=== PATIENT | female | born 1950 | race Caucasian/White ===

== ENCOUNTER 2020-09-11 08:07 | Outpatient (REF) | payer MEDICARE, MEDICAID, SELFPAY ==
--- NOTE | 2020-09-11 08:32 | ECG_ITS ---
Test Reason : ENCOUNTER FOR SCREEN Blood Pressure : / mmHG Vent. Rate : 058 BPM Atrial Rate : 058 BPM P-R Int : 172 ms QRS Dur : 116 ms QT Int : 402 ms P-R-T Axes : 066 -10 012 degrees QTc Int : 394 ms Sinus bradycardia Low voltage QRS Right bundle branch block Abnormal ECG No previous ECGs available Referred By: Fransico Verma Electronically Signed By:KATTY NORIEGA
[2020-09-11 09:34] LABS: MANUAL DIFF FLAG NO
[2020-09-11 09:47] LABS: Basophils Percent Auto 0.6 % (0-2); Eosinophils Absolute Auto 0.2 X10*3/uL (0.0-0.4); Hemoglobin 12.6 g/dl (12.0-16.0); Lymphocytes Absolute Auto 1.4 X10*3/uL (1.2-4.9); Lymphocytes Percent Auto 28.4 % (20-40); Mean Corpuscular HGB Conc 34.1 g/dl (31.0-35.0); Mean Corpuscular Hemoglobin 32.1 pg (27.0-33.0); Mean Corpuscular Volume 94.4 fL (80-98); Mean Platelet Volume 9.4 fL (9.4-12.3); Monocytes Absolute Auto 0.5 X10*3/uL (0.1-1.2); Monocytes Percent Auto 9.3 % (2-11); Neutrophils Percent Auto 58.7 % (45-73); Platelet Count 248 X10*3/uL (160-400); Red Blood Count 3.92 X10*6/uL (4.20-5.50); Red Cell Distribution Width 12.5 % (11.0-16.0)
[2020-09-11 10:03] LABS: Alanine Aminotransferase 20 U/L (0-31); Albumin Level 4.4 g/dL (3.5-5.0); Alkaline Phosphatase 111 U/L (39-117); Anion Gap 13 (12-20); Aspartate Amino Transferase 24 U/L (5-31); Bilirubin Total 0.7 mg/dL (0.0-1.0); Blood Urea Nitrogen 20 mg/dL (9-16); Calcium 9.7 mg/dL (8.4-10.2); Carbon Dioxide 31 mmol/L (22-29); Chloride 102 mmol/L (96-108); Cholesterol 283 mg/dL; Estimated Glomerular Filt Rate > 60; Glucose Fasting 75 mg/dL (60-99); HDL Cholesterol 84 mg/dL; LDL Cholesterol Calculated 188 mg/dl; Potassium 3.8 mmol/L (3.3-5.1); Sodium 142 mmol/L (135-145); Total Protein 6.8 g/dL (6.5-8.0); Triglycerides 59 mg/dL
[2020-09-11 10:22] LABS: Thyroid Stimulating Hormone 0.83 uIU/mL (0.32-4.0)
== END 2020-09-11 08:08 | disposition home or self-care (01) ==
LOC: HO.LAB 08:07
PROVIDERS: PCP Internal Medicine; Visit Provider Internal Medicine
DX: Z00.00 Encounter for general adult medical examination without abnormal findings (principal); Z13.9 Encounter for screening, unspecified; E03.9 Hypothyroidism, unspecified; E11.9 Type 2 diabetes mellitus without complications
CPT/HCPCS: 36415; 80053; 80061; 84443; 85025; 93005

== ENCOUNTER 2022-01-06 08:38 | Outpatient (REF) | payer MEDICARE, MEDICAID, SELFPAY ==
[2022-01-06 09:47] LABS: Hematocrit 35.9 % (37.0-47.0); Hemoglobin 12.5 g/dl (12.0-16.0); Mean Corpuscular HGB Conc 34.8 g/dl (31.0-35.0); Mean Corpuscular Hemoglobin 33.3 pg (27.0-33.0); Mean Corpuscular Volume 95.7 fL (80.0-98.0); Mean Platelet Volume 9.8 fL (9.4-12.3); Platelet Count 260 X10*3/uL (160-400); Red Blood Count 3.75 X10*6/uL (4.20-5.50); Red Cell Distribution Width 13.1 % (11.0-16.0); White Blood Count 5.9 X10*3/uL (4.8-10.8)
[2022-01-06 10:11] LABS: Alanine Aminotransferase 20 U/L (0-31); Albumin Level 4.3 g/dL (3.5-5.0); Alkaline Phosphatase 110 U/L (39-117); Anion Gap 17 (12-20); Aspartate Amino Transferase 25 U/L (5-31); Bilirubin Total 0.6 mg/dL (0.0-1.0); Blood Urea Nitrogen 12 mg/dL (9-16); Calcium 9.5 mg/dL (8.4-10.2); Carbon Dioxide 28 mmol/L (22-29); Chloride 101 mmol/L (96-108); Cholesterol 281 mg/dL; Estimated Glomerular Filt Rate > 60; Glucose Fasting 81 mg/dL (60-99); HDL Cholesterol 86 mg/dL; LDL Cholesterol Calculated 183 mg/dl; Potassium 3.8 mmol/L (3.3-5.1); Sodium 142 mmol/L (135-145); Total Protein 6.9 g/dL (6.5-8.0); Triglycerides 63 mg/dL
[2022-01-06 10:28] LABS: TSH reflex Free T4 1.32 uIU/mL (0.32-4.0); Vitamin D 25-OH Total 67.1 ng/mL (>30)
[2022-01-06 10:39] LABS: Folate > 20.0 ng/mL (> or = 4.0); Vitamin B12 496 pg/mL (200-900)
== END 2022-01-06 08:39 | disposition home or self-care (01) ==
LOC: HO.LAB 08:38
PROVIDERS: PCP Internal Medicine; Visit Provider Nurse Practitioner Family
DX: Z00.00 Encounter for general adult medical examination without abnormal findings (principal); Z13.29 Encounter for screening for other suspected endocrine disorder; E78.5 Hyperlipidemia, unspecified
CPT/HCPCS: 36415; 80053; 80061; 82306; 82607; 82746; 84443; 85027

== ENCOUNTER 2022-05-04 07:31 | Outpatient (REF) | payer MEDICARE, MEDICAID, SELFPAY ==
[2022-05-04 11:18] LABS: Cholesterol 194 mg/dL; HDL Cholesterol 78 mg/dL; LDL Cholesterol Calculated 103 mg/dl; Triglycerides 65 mg/dL
== END 2022-05-04 07:32 | disposition home or self-care (01) ==
LOC: HO.10HDL 07:31
PROVIDERS: Visit Provider Nurse Practitioner Family
DX: E78.5 Hyperlipidemia, unspecified (principal)
CPT/HCPCS: 36415; 80061

== ENCOUNTER 2022-11-07 13:31 | Outpatient (AMB) | payer MEDICARE, MEDICAID, SELFPAY ==
--- NOTE | 2022-11-07 13:39 | A.OFFPC_ITS ---
Vital Signs 11/07/22 13:42 Height 5 ft 2 in Weight 134 lb BMI 24.5 BP 110/60 Blood Pressure Location Lt brachial Position Sitting Pulse 81 Pulse Source Pulse Oximeter Pulse Oximetry (%) 96 Oxygen Delivery Method Room Air Intake Visit Reasons: Annual Exam Intake Note: Patient is here today for a physical. 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 per policy Accompanied by: Self / Same As Patient Allergies dog dander [DOGS] Allergy (Intermediate, Verified 11/07/22 13:44) ITCHING DUST Allergy (Intermediate, Uncoded 11/07/22 13:44) ITCHING SEASONAL ALLERGIES Allergy (Intermediate, Uncoded 11/07/22 13:44) ITCHING zylocaine Allergy (Intermediate, Uncoded 11/07/22 13:44) Seizure Medication List - Last Reconciled 11/07/22 by Fransico Verma MD atorvastatin 40 mg PO DAILY blood pressure monitor As directed epinephrine IM DIRECTED hydrochlorothiazide 50 mg PO QAM nystatin 1,000,000 units PO BID tretinoin 0.025% topical BEDTIME Tobacco use date assessed: 11/07/22 Fall risk assessment: No Falls in past year Last assessed Fall Risk: 11/07/22 Dental Screening Dental Screen Date: 11/07/22 Did you have a dental visit in the last 12 months?: Yes Did you have a dental problem in the last 6 months where you did not have access to dental care?: No Was dental information given to patient?: Patient has dentist HPI Annual Exam HPI Details HTN on Rx; doing well PFSH Medical History (Updated 11/07/22 @ 14:01 by Fransico Verma MD) Hyperlipidemia Hypertension Right bundle branch block Surgical History History of colonoscopy Hx of appendectomy Hx of tooth extraction Family History (Updated 11/07/22 @ 13:40 by CAIT Gamino) Father No problems noted. Mother No problems noted. Social History Housing: Assisted Living Facility Alcohol intake: never Patient Tobacco Use Status: Former Tobacco user Tobacco use type: Cigarette e-Cigarette/Vaping Use: Never Used Second Hand Smoke Exposure: No service: No Current occupational status: retired Cognitive needs: No Hearing needs: No Vision needs: Yes (glasses) Questionnaire Thrive Questionnaire Date Thrive assessed: 05/09/22 ALY-7 AMB Questionnaire ALY-7 Date ALY - 7 assessed: 05/09/22 Source: Developed by Drs. Mendel Elam, Coral Joseph, Connor Bryan and colleagues, with an educational addison from [employer]. Review of Systems Const Denies chills, Denies fatigue, Denies headache(s) and Denies weight loss Eyes Denies change in vision, Denies diplopia and Denies eye pain ENT Denies vertigo, Denies dizziness, Denies headache(s) and Denies nasal discharge Card Denies chest pain, Denies rapid heart rate and Denies dyspnea on exertion Resp Denies chest congestion, Denies cough, Denies pain with cough and Denies dyspnea on exertion GI Denies abdominal pain, Denies hematochezia and Denies change in bowel habits Musc Denies myalgias, Denies arthralgias and Denies joint swelling Skin/Breast Denies lesions and Denies unusual bruising Neuro Denies vertigo, Denies dizziness, Denies headache(s) and Denies focal weakness Endo Denies fatigue Physical exam (Primary Care) Vital Signs: Last Vital Signs Pulse 81 11/07/22 13:42 BP 110/60 11/07/22 13:42 Pulse Ox 96 11/07/22 13:42 Oxygen Delivery Method Room Air 11/07/22 13:42 BMI result Body Mass Index 24.5 Tobacco/Smoking Status: Tobacco use Status Tobacco use date assessed 11/07/22 11/07/22 13:47 Patient Tobacco Use Status Former Tobacco user 11/07/22 13:47 Tobacco use type Cigarette 11/07/22 13:47 e-Cigarette/Vaping Use Never Used 11/07/22 13:47 Thrive Assessment: Date of Thrive Assessment Date Thrive assessed 05/09/22 11/07/22 13:47 Advance Care Planning discussion: On file, no changes Forms completed: Health Care Proxy Const General: cooperative, healthy appearing and no acute distress Orientation/consciousness: oriented to person, oriented to place and oriented to time HENMT Head: Yes normal to inspection, Yes normocephalic and Yes atraumatic Mouth: Normal oral and palatal mucosa present and tongue normal Throat: Yes posterior oropharynx normal and Yes uvula midline Eyes General: appearance normal, both eyes and all related structures Neck Neck: Yes normal visual inspection, Yes full ROM and Yes no lymphadenopathy Thyroid: Thyroid normal Carotids: normal carotid upstroke Chest Chest palpation & inspection: normal inspection of the chest Resp Effort & Inspection: normal respiratory effort and able to speak in complete sentences Auscultation: clear to auscultation bilaterally Cardio Jugular venous distension: no JVD Palpation: normal PMI Rate: regular rate Rhythm: regular rhythm Heart sounds: S1 normal heart sound present and S2 normal heart sound present GI Inspection: Yes normal to inspection Palpation (GI): Soft to palpation and No hepatosplenomegaly present Auscultation: normal bowel sounds General: Yes no CVA tenderness Back/Spine/Pelvis Back: no CVA tenderness Skin General skin exam: no rashes or lesions noted Neuro General: oriented to person, oriented to place and oriented to time Extrem General: Yes normal to inspection and Yes full ROM Assessment and Plan Assessment & Plan (1) Hypertension: Code(s): I10 - Essential (primary) hypertension Plan: decrease HCTZ to 25mg qd (2) Hyperlipidemia: Code(s): E78.5 - Hyperlipidemia, unspecified Plan: stable; do labs (3) Physical exam: Code(s): Z00.00 - Encounter for general adult medical examination without abnormal findings Plan: stable; do lasb Coding Level of Care Code Est Pt Prev Care >65y(16004) Diagnoses Hypertension I10 Hyperlipidemia E78.5 Physical exam Z00.00 Additional Codes Vital Signs *Quality* - Advance Care Planning discussion: On file, no changes ([id number])
[2022-11-07 13:42] VITALS: BP 110/60; PULSE 81; O2SAT 96; BMI 24.5
== END 2022-11-07 13:59 | disposition home or self-care (01) ==
PROVIDERS: Visit Provider Internal Medicine
DX: Z00.00 Encounter for general adult medical examination without abnormal findings (principal); I10 Essential (primary) hypertension; E78.5 Hyperlipidemia, unspecified
CPT/HCPCS: 1123F; 99397

== ENCOUNTER 2023-11-03 12:32 | Outpatient (REF) | payer MEDICARE, MEDICAID, SELFPAY ==
[2023-11-03 12:45] LABS: MANUAL DIFF FLAG NO
[2023-11-03 13:20] LABS: Basophils Percent Auto 0.7 % (0-2); Eosinophils Absolute Auto 0.1 X10*3/uL (0.0-0.4); Eosinophils Percent Auto 1.7 % (0-4); Hematocrit 35.9 % (37.0-47.0); Hemoglobin 12.7 g/dl (12.0-16.0); Imm Gran Abs Auto 0.02 X10*3/uL (0.00-0.03); Imm Gran Pct Auto 0.3 % (0.0-0.4); Lymphocytes Absolute Auto 2.1 X10*3/uL (1.2-4.9); Lymphocytes Percent Auto 35.2 % (20-40); Mean Corpuscular HGB Conc 35.4 g/dl (31.0-35.0); Mean Corpuscular Hemoglobin 33.2 pg (27.0-33.0); Mean Platelet Volume 9.7 fL (9.4-12.3); Monocytes Absolute Auto 0.5 X10*3/uL (0.1-1.2); Monocytes Percent Auto 8.5 % (2-11); Neutrophils Absolute Auto 3.2 x10*3/uL (2.0-8.3); Neutrophils Percent Auto 53.6 % (45-73); Platelet Count 246 X10*3/uL (160-400); Red Blood Count 3.82 X10*6/uL (4.20-5.50); Red Cell Distribution Width 12.4 % (11.0-16.0)
[2023-11-03 20:44] LABS: Alanine Aminotransferase 14 U/L (0-31); Albumin Level 4.3 g/dL (3.5-5.0); Alkaline Phosphatase 85 U/L (39-117); Anion Gap 14 (12-20); Aspartate Amino Transferase 25 U/L (5-31); Bilirubin Total 0.4 mg/dL (0.0-1.0); Blood Urea Nitrogen 5 mg/dL (9-16); Calcium 9.9 mg/dL (8.4-10.2); Carbon Dioxide 27 mmol/L (22-29); Chloride 104 mmol/L (96-108); Cholesterol 241 mg/dL (<200); Estimated Glomerular Filt Rate > 60; Glucose Fasting 80 mg/dL (60-99); HDL Cholesterol 83 mg/dL (>40); LDL Cholesterol Calculated 145 mg/dL (<100); Potassium 3.5 mmol/L (3.3-5.1); Sodium 141 mmol/L (135-145); Thyroid Stimulating Hormone 1.21 uIU/mL (0.32-4.0); Total Protein 6.7 g/dL (6.5-8.0); Triglycerides 68 mg/dL (<150)
== END 2023-11-03 12:33 | disposition home or self-care (01) ==
LOC: HO.LAB 12:32
PROVIDERS: PCP Internal Medicine; Visit Provider Internal Medicine
DX: Z13.220 Encounter for screening for lipoid disorders (principal); Z13.29 Encounter for screening for other suspected endocrine disorder; Z20.2 Contact with and (suspected) exposure to infections with a predominantly sexual mode of transmission
CPT/HCPCS: 36415; 80053; 80061; 84443; 85025

== ENCOUNTER 2023-11-10 09:50 | Outpatient (AMB) | payer MEDICARE, MEDICAID, SELFPAY ==
[2023-11-10 09:54] VITALS: BP 100/60; PULSE 67; O2SAT 96; BMI 24.7
--- NOTE | 2023-11-10 09:54 | MHC.PC.OV ---
Vital Signs 11/10/23 09:54 Height 5 ft 2 in Weight 135 lb BMI 24.7 BP 100/60 Blood Pressure Location Lt brachial Position Sitting Pulse 67 Pulse Source Pulse Oximeter Pulse Oximetry (%) 96 Oxygen Delivery Method Room Air Intake Visit Reasons: Annual Exam Cook Sauce Required: No Accompanied by: Self / Same As Patient Allergies dog dander [DOGS] Allergy (Intermediate, Verified 11/07/22 13:44) ITCHING DUST Allergy (Intermediate, Uncoded 11/07/22 13:44) ITCHING SEASONAL ALLERGIES Allergy (Intermediate, Uncoded 11/07/22 13:44) ITCHING zylocaine Allergy (Intermediate, Uncoded 11/07/22 13:44) Seizure Tobacco use date assessed: 11/07/22 Fall risk assessment: No Falls in past year Last assessed Fall Risk: 11/10/23 Dental Screening Dental Screen Date: 11/10/23 Did you have a dental visit in the last 12 months?: No Did you have a dental problem in the last 6 months where you did not have access to dental care?: No Was dental information given to patient?: Patient has dentist HPI Annual Exam HPI Details hyperlipidemia and hypertension; stable [facility] Medical History (Updated 11/07/22 @ 14:01 by Fransico Verma MD) Right bundle branch block Hypertension Hyperlipidemia Surgical History History of colonoscopy Hx of tooth extraction Hx of appendectomy Family History Father No problems noted. Mother No problems noted. Social History Housing: Assisted Living Facility Alcohol intake: never Patient Tobacco Use Status: Former Tobacco user Tobacco use type: Cigarette e-Cigarette/Vaping Use: Never Used Second Hand Smoke Exposure: No service: No Current occupational status: retired Cognitive needs: No Hearing needs: No Vision needs: Yes (glasses) Questionnaire PHQ-9 Over the last 2 weeks, how often have you been bothered by any of the following problems? 1. Little interest or pleasure in doing things: not at all 2. Feeling down, depressed, or hopeless: not at all 3. Trouble falling or staying asleep, or sleeping too much: not at all 4. Feeling tired or having little energy: not at all 5. Poor appetite or overeating: not at all 6. Feeling bad about yourself - or that you are a failure or have let yourself or your family down: not at all 7. Trouble concentrating on things, such as reading the newspaper or watching television: not at all 8. Moving or speaking so slowly that other people could have noticed. Or the opposite - being so fidgety or restless that you have been moving around a lot more than usual: not at all 9. Thoughts that you would be better off or of hurting yourself in some way: not at all Total score: 0 Depression Screening Interpretation: Negative Depression Screening Done: Yes 09346 - PHQ-9 Billing: Yes Source: Developed by Drs. Mendel Elam, Coral Joseph, Connor Bryan and colleagues, with an educational addison from [employer]. Thrive Questionnaire Date Thrive assessed: 11/10/23 I am a: Patient What is your living situation today?: I have a steady place to live Within the past 12 months, did the food you bought not last and you didn't have the money to get more?: Never true Within the past 12 months, did you worry whether your food would run out before you got money to buy more?: Never true Do you have trouble paying for medicines?: No Do you have trouble getting transportation to medical appointments?: No Do you have trouble paying your heating and electricity bill?: No Do you have trouble taking care of your child, family member or friend?: No Do you have trouble with day-to-day activities such as bathing, preparing meals, shopping, managing finances, etc.?: No Are you currently unemployed and looking for a job?: No Are you interested in more education?: No Please select the resources that you would like help with: None THRIVE Score: 0 ALY-7 AMB Questionnaire ALY-7 Date ALY - 7 assessed: 11/10/23 Feeling nervous, anxious, or on edge: 0 = Not at all Not being able to stop or control worryin = Not at all Worrying too much about different things: 0 = Not at all Trouble relaxin = Not at all Being so restless that it is hard to sit still: 0 = Not at all Becoming easily annoyed or irritable: 0 = Not at all Feeling afraid as if something awful might happen: 0 = Not at all Total ALY-7 score (0-4 normal; 5-9 mild; 10-14 moderate; 15-21 severe): 0 Source: Developed by Drs. Mendel Elam, Coral Joseph, Connor Bryan and colleagues, with an educational addison from [employer]. ALY-7 Assessment Billing ALY-7 Assessment Tool: ALY-7 Assessment 45059 Review of Systems Const Denies chills, Denies fatigue, Denies headache(s) and Denies weight loss Eyes Denies change in vision, Denies diplopia and Denies eye pain ENT Denies vertigo, Denies dizziness, Denies headache(s) and Denies nasal discharge Card Denies chest pain, Denies rapid heart rate and Denies dyspnea on exertion Resp Denies chest congestion, Denies cough, Denies pain with cough and Denies dyspnea on exertion GI Denies abdominal pain, Denies hematochezia and Denies change in bowel habits Musc Denies myalgias, Denies arthralgias and Denies joint swelling Skin/Breast Denies lesions and Denies unusual bruising Neuro Denies vertigo, Denies dizziness, Denies headache(s) and Denies focal weakness Endo Denies fatigue Physical exam (Primary Care) Vital Signs: Last Vital Signs Pulse 67 11/10/23 09:54 BP 100/60 11/10/23 09:54 Pulse Ox 96 11/10/23 09:54 Oxygen Delivery Method Room Air 11/10/23 09:54 BMI result Body Mass Index 24.7 Tobacco/Smoking Status: Tobacco use Status Tobacco use date assessed 11/07/22 11/10/23 09:56 Patient Tobacco Use Status Former Tobacco user 11/10/23 09:56 Tobacco use type Cigarette 11/10/23 09:56 e-Cigarette/Vaping Use Never Used 11/10/23 09:56 PHQ-9: PHQ-9 Score PHQ-9: Total score 0 11/10/23 10:09 Depression Screening Interpretation: Negative Thrive Assessment: Date of Thrive Assessment Date Thrive assessed 11/10/23 11/10/23 09:56 Const General: cooperative, healthy appearing and no acute distress Orientation/consciousness: oriented to person, oriented to place and oriented to time HENMT Head: Yes normal to inspection, Yes normocephalic and Yes atraumatic Mouth: Normal oral and palatal mucosa present and tongue normal Throat: Yes posterior oropharynx normal and Yes uvula midline Eyes General: appearance normal, both eyes and all related structures Neck Neck: Yes normal visual inspection, Yes full ROM and Yes no lymphadenopathy Thyroid: Thyroid normal Carotids: normal carotid upstroke Chest Chest palpation & inspection: normal inspection of the chest Resp Effort & Inspection: normal respiratory effort and able to speak in complete sentences Auscultation: clear to auscultation bilaterally Cardio Jugular venous distension: no JVD Palpation: normal PMI Rate: regular rate Rhythm: regular rhythm Heart sounds: S1 normal heart sound present and S2 normal heart sound present GI Inspection: Yes normal to inspection Palpation (GI): Soft to palpation and No hepatosplenomegaly present Auscultation: normal bowel sounds General: Yes no CVA tenderness Back/Spine/Pelvis Back: no CVA tenderness Skin General skin exam: no rashes or lesions noted Neuro General: oriented to person, oriented to place and oriented to time Extrem General: Yes normal to inspection and Yes full ROM Assessment and Plan Assessment & Plan (1) Physical exam: Code(s): Z00.00 - Encounter for general adult medical examination without abnormal findings Plan: stable; do labs (2) Hypertension: Code(s): I10 - Essential (primary) hypertension Plan: stable; same rx (3) Hyperlipidemia: Code(s): E78.5 - Hyperlipidemia, unspecified Plan: stable; same rx Orders: Orders ECG 12 lead EKG 11/10/23 I10 - Essential (primary) hypertension Lipid Panel 11/10/23 Z13.220 - Encounter for screening for lipoid disorders Coding Level of Care Code Est Pt Prev Care >65y(58666) Diagnoses Physical exam Z00.00 Hypertension I10 Hyperlipidemia E78.5 Additional Codes ALY-7 Assessment Billing - ALY-7 Assessment Tool: ALY-7 Assessment [id number] ([id number])
== END 2023-11-10 10:29 | disposition home or self-care (01) ==
PROVIDERS: PCP Internal Medicine; Visit Provider Internal Medicine
DX: Z00.00 Encounter for general adult medical examination without abnormal findings (principal); I10 Essential (primary) hypertension; E78.5 Hyperlipidemia, unspecified
CPT/HCPCS: 99397

== ENCOUNTER → 2023-11-10 11:20 | Outpatient (REF) | payer MEDICARE, MEDICAID, SELFPAY ==
--- NOTE | 2023-11-10 11:25 | ECG_ITS ---
Test Reason : HTN Blood Pressure : / mmHG Vent. Rate : 068 BPM Atrial Rate : 068 BPM P-R Int : 168 ms QRS Dur : 120 ms QT Int : 396 ms P-R-T Axes : 069 -30 023 degrees QTc Int : 421 ms Normal sinus rhythm Possible Left atrial enlargement Left axis deviation Low voltage QRS Right bundle branch block Abnormal ECG When compared with ECG of 11-SEP-2020 08:36, No significant change was found Referred By: Fransico Verma Electronically Signed By:KATTY NORIEGA
== END ==
LOC: HO.CARD 11:20
PROVIDERS: PCP Internal Medicine; Visit Provider Internal Medicine
DX: I10 Essential (primary) hypertension (principal)
CPT/HCPCS: 93005

== ENCOUNTER → 2023-11-10 11:25 | Outpatient (BNV) | payer MEDICARE, MEDICAID, SELFPAY | PROVIDERS: PCP Internal Medicine; Visit Provider Internal Medicine | DX: R94.31 Abnormal electrocardiogram [ECG] [EKG] (principal) | CPT/HCPCS: 93010 ==

== ENCOUNTER 2024-11-12 10:14 | Outpatient (AMB) | payer MEDICARE, MEDICAID, SELFPAY ==
--- NOTE | 2024-11-12 10:16 | A.OFFPC_ITS ---
Vital Signs 11/12/24 10:17 Height 5 ft 2 in Weight 136 lb BMI 24.9 BP 126/54 L Blood Pressure Location Lt brachial Position Sitting Pulse 70 Pulse Source Pulse Oximeter Temp 98.3 F Temp Source Temporal Artery Scan Pulse Oximetry (%) 97 Oxygen Delivery Method Room Air Intake Visit Reasons: ALESSANDRA DR Verma Security Sergeant Required: No Accompanied by: Self / Same As Patient Allergies dog dander (DOGS) Allergy (Intermediate, Verified 11/12/24 10:26) ITCHING DUST Allergy (Intermediate, Uncoded 11/12/24 10:26) ITCHING SEASONAL ALLERGIES Allergy (Intermediate, Uncoded 11/12/24 10:26) ITCHING zylocaine Allergy (Intermediate, Uncoded 11/12/24 10:26) Seizure Medication List - Last Reconciled 11/12/24 by Miladys Osullivan PA-C atorvastatin 40 mg PO DAILY blood pressure monitor As directed epinephrine IM DIRECTED hydrochlorothiazide 50 mg PO QAM nystatin 1,000,000 units PO BID tretinoin 0.025% topical BEDTIME Tobacco use date assessed: 11/12/24 Fall risk assessment: No Falls in past year Last assessed Fall Risk: 11/12/24 Dental Screening Dental Screen Date: 11/12/24 Did you have a dental visit in the last 12 months?: No Did you have a dental problem in the last 6 months where you did not have access to dental care?: No Was dental information given to patient?: No HPI ALESSANDRA DR Verma HPI Details 74-year-old female with past medical his tory of hyperlipidemia, hypertension last seen 10/2023 coming in for transfer care from Dr. Verma/annual exam. Presenting with hypertension and hyperlipidemia management. The patient has been on hydrochlorothiazide 50 mg daily, which was initiated after an episode of significant swelling and elevated blood pressure. The patient experienced dizziness and hypotension, leading to a reduction in the dose to 25 mg daily. Blood pressure readings have been low, and the current reading is 126/54 mmHg on the 25 mg. The patient is on atorvastatin 40 mg, with previous cholesterol levels noted to be high at 145 mg/dL. The patient reports stomach pain associated with certain foods, alleviated by antacids. Mammogram: Last documented 04/2023 with [facility] D[facility]A: with ROBERT Negron 2023 Colonoscopy: Last done 2021 repeat in 5 years Advanced directives: believes this is completed - advised to bring in the forms [facility] Medical History Right bundle branch block Hypertension Hyperlipidemia Surgical History History of colonoscopy Hx of tooth extraction Hx of appendectomy Family History Father No problems noted. Mother No problems noted. Social History Housing: Assisted Living Facility Alcohol intake: never Patient Tobacco Use Status: Former Tobacco user Tobacco use type: Cigarette e-Cigarette/Vaping Use: Never Used Second Hand Smoke Exposure: No service: No Current occupational status: retired Cognitive needs: No Hearing needs: No Vision needs: Yes (glasses) Questionnaire PHQ-9 Over the last 2 weeks, how often have you been bothered by any of the following problems? 1. Little interest or pleasure in doing things: not at all 2. Feeling down, depressed, or hopeless: not at all 3. Trouble falling or staying asleep, or sleeping too much: not at all 4. Feeling tired or having little energy: not at all 5. Poor appetite or overeating: not at all 6. Feeling bad about yourself - or that you are a failure or have let yourself or your family down: not at all 7. Trouble concentrating on things, such as reading the newspaper or watching television: not at all 8. Moving or speaking so slowly that other people could have noticed. Or the opposite - being so fidgety or restless that you have been moving around a lot more than usual: not at all 9. Thoughts that you would be better off or of hurting yourself in some way: not at all Total score: 0 Depression Screening Interpretation: Negative Depression Screening Done: Yes 04100 - PHQ-9 Billing: Yes Source: Developed by Drs. Mendel Elam, Coral Joseph, Connor Bryan and colleagues, with an educational addison from [employer]. Thrive Questionnaire Date Thrive assessed: 11/12/24 I am a: Patient What is your living situation today?: I have a steady place to live Within the past 12 months, did the food you bought not last and you didn't have the money to get more?: Never true Within the past 12 months, did you worry whether your food would run out before you got money to buy more?: Never true Do you have trouble paying for medicines?: No Do you have trouble getting transportation to medical appointments?: No Do you have trouble paying your heating and electricity bill?: No Do you have trouble taking care of your child, family member or friend?: No Do you have trouble with day-to-day activities such as bathing, preparing meals, shopping, managing finances, etc.?: No Are you currently unemployed and looking for a job?: No Are you interested in more education?: No Please select the resources that you would like help with: None Currently or been in a relationship where the following occur: No concerns reported THRIVE Score: 0 AUDIT C Alcohol Use Questionnaire (AUDIT-C) 1. How often do you have a drink containing alcohol?: Never 2. How many drinks containing alcohol do you have on a typical day when you are drinking?: 1 or 2 3. How often do you have six or more drinks on one occasion?: Never Total Score: 0 ALY-7 AMB Questionnaire ALY-7 Date ALY - 7 assessed: 11/12/24 Feeling nervous, anxious, or on edge: 0 = Not at all Not being able to stop or control worryin = Not at all Worrying too much about different things: 0 = Not at all Trouble relaxin = Not at all Being so restless that it is hard to sit still: 0 = Not at all Becoming easily annoyed or irritable: 0 = Not at all Feeling afraid as if something awful might happen: 0 = Not at all Total ALY-7 score (0-4 normal; 5-9 mild; 10-14 moderate; 15-21 severe): 0 Source: Developed by Drs. Mendel Elam, Coral Joseph, Connor Bryan and colleagues, with an educational addison from [employer]. ALY-7 Assessment Billing ALY-7 Assessment Tool: ALY-7 Assessment 00602 Review of Systems Const Denies body aches, Denies fatigue, Denies frequent falls, Denies headache(s) and Denies weakness Eyes Details: eye doctor yearly Reports no additional complaints, Denies change in vision and Reports requires corrective lenses (reading only ) ENT Denies dysphagia, Denies dizziness, Denies facial pain, Denies headache(s) and Denies odynophagia Card Denies chest pain, Denies syncope, Denies irregular heart rhythm, Denies leg edema, Denies lightheadedness and Denies dyspnea Resp Denies cough and Denies dyspnea GI Reports abdominal pain, Denies constipation, Denies dysphagia, Denies dyspepsia, Denies diarrhea, Denies nausea, Denies odynophagia and Denies vomiting Denies urinary frequency, Denies dysuria, Denies urinary hesitancy and Denies urinary urgency Musc Denies back pain and Denies myalgias Skin/Breast Reports system reviewed and no additional complaints, except as documented Neuro Denies dizziness, Denies syncope, Denies frequent falls, Denies headache(s) and Denies weakness Psych Reports no additional complaints Endo Denies fatigue Physical exam (Primary Care) Vital Signs: Last Vital Signs Temp 98.3 F 11/12/24 10:17 Pulse 70 11/12/24 10:17 BP 126/54 L 11/12/24 10:17 Pulse Ox 97 11/12/24 10:17 Oxygen Delivery Method Room Air 11/12/24 10:17 BMI result Body Mass Index 24.9 Tobacco/Smoking Status: Tobacco use Status Tobacco use date assessed 11/12/24 11/12/24 10:18 Patient Tobacco Use Status Former Tobacco user 11/12/24 10:18 Tobacco use type Cigarette 11/12/24 10:18 e-Cigarette/Vaping Use Never Used 11/12/24 10:18 PHQ-9: PHQ-9 Score PHQ-9: Total score 0 11/12/24 10:18 Depression Screening Interpretation: Negative Thrive Assessment: Date of Thrive Assessment Date Thrive assessed 11/12/24 11/12/24 10:18 Currently or been in a relationship where the following occur: No concerns reported Const General: cooperative, healthy appearing, comfortable and no acute distress Orientation/consciousness: patient oriented x3 HENMT Head: Yes normocephalic Ears: hearing grossly normal bilaterally, external ears normal, TM's normal bilaterally and EAC's normal General nose exam: Normal external nose present Face and sinus: Yes normal facial exam and Yes sinuses nontender Mouth: Normal oral and palatal mucosa present and tongue normal Throat: Yes posterior oropharynx normal Eyes General: appearance normal, both eyes and all related structures Conjunctivae: conjunctivae normal Pupils: Equal, round and reactive pupils present EOM: EOMs intact bilaterally and No Nystagmus present Neck Neck: Yes normal visual inspection, Yes full ROM and Yes no lymphadenopathy Chest Chest palpation & inspection: normal inspection of the chest Resp Effort & Inspection: normal respiratory effort Auscultation: clear to auscultation bilaterally, no crackles, no rales, no rhonchi, no wheezes and breath sounds present Cardio Rate: regular rate Rhythm: regular rhythm Heart sounds: Murmur heart sound present systolic Peripheral pulses: radial pulses present and dorsalis pedis present GI Inspection: Yes normal to inspection and No Abdominal wall edema Palpation (GI): Soft to palpation, not firm and nontender Auscultation: normal bowel sounds Rectal Exam - Female: deferred General: Yes no CVA tenderness Back/Spine/Pelvis Back: no CVA tenderness Skin General skin exam: no rashes or lesions noted Neuro General: patient oriented x3 Cranial nerves: Yes Equal, round and reactive pupils present, Yes Midline tongue present, Yes Ability to bilaterally elevate shoulders present and No Nystagmus present Gait exam (Neuro): Normal gait present Extrem General: Yes normal to inspection, Yes full ROM, No no pedal edema and No edema Psych Speech and movement: Normal speech and movement present Affect: normal affect Insight: Good insight present (Psych) Judgement: Good judgement present (Psych) Coding Level of Care Code Est Pt Prev Care >65y(93183) Diagnoses Physical exam Z00.00 Primary hypertension I10 Hypertension type: primary hypertension Mixed hyperlipidemia E78.2 Hyperlipidemia type: mixed hyperlipidemia Abdominal pain R10.9 Systolic murmur R01.1 Additional Codes ALY-7 Assessment Billing - ALY-7 Assessment Tool: ALY-7 Assessment 24419 ([id number]) PHQ-9 - 83536 - PHQ-9 Billing: Yes ([id number]) Assessment & Plan Assessment & Plan (1) Physical exam: Code(s): Z00.00 - Encounter for general adult medical examination without abnormal findings Category: Medical Plan: Patient is up-to-date on bone density screenings and colonoscopy and does routinely follow with her eye doctor and hydrochloric acid operator. She is overdue for mammogram and agrees to reach out to [facility] to have this scheduled. Blood work is not up-to-date and has been ordered today. Healthy diet and regular exercise is encouraged. Plan to follow up in 3 months or sooner as needed. (2) Hypertension: Code(s): I10 - Essential (primary) hypertension Category: Medical Qualifiers: Hypertension type: primary hypertension Qualified Code(s): I10 - Essential (primary) hypertension Plan: Continue on current blood pressure medication. Avoid salt intake and encourage healthy diet and regular exercise. Currently on hydrochlorothiazide 50 mg daily (3) Hyperlipidemia: Code(s): E78.5 - Hyperlipidemia, unspecified Category: Medical Qualifiers: Hyperlipidemia type: mixed hyperlipidemia Qualified Code(s): E78.2 - Mixed hyperlipidemia Plan: Avoid foods that are high in cholesterol such as red meat, fried foods, eggs and baked goods. Triglyceride goal of less than 150 and LDL goal of less than 130. Continue on atorvastatin 40. Ordered for updated blood work (4) Abdominal pain: Code(s): R10.9 - Unspecified abdominal pain Category: Medical Plan: epigastric Abdominal pain likely related to GERD as it is triggered by certain foods and relieved with antacids. Plan to trial Famotidine daily for symptom management and follow up in 3 months. Reviewed red flag symptoms and when to present for re-evaluation (5) Systolic murmur: Code(s): R01.1 - Cardiac murmur, unspecified Category: Medical Plan: Patient having asymptomatic systolic murmur at this time. I did reviewed red flag symptoms and when to present for re-evaluation. Plan to continue to monitor at this time and consider imaging if patient should develop symptoms. Plan The patient will continue on hydrochlorothiazide at a reduced dose of 25 mg daily to manage hypertension, with monitoring of blood pressure to ensure stability. Atorvastatin 40 mg will be continued for hyperlipidemia, with follow- up blood work to assess cholesterol levels and determine if dosage adjustments are necessary. A prescription for a medication to manage gastroesophageal reflux disease has been provided, with instructions to take it before meals to alleviate symptoms. The patient is advised to avoid foods that trigger allergies and stomach pain, and a referral to an supplier engineer is recommended for further evaluation. Preventative care measures include scheduling an overdue mammogram and considering a bone density scan. Follow-up is recommended in three months to reassess blood pressure, cholesterol levels, and the effectiveness of the GERD treatment. This note was constructed using voice recognition software. While every effort has been made to ensure accuracy and duplicating machine servicer, still areas may have been included sometimes these areas may affect the content or meeting of the given symptoms. Total time spent caring for the patient today was 30 minutes. This includes time spent before the visit reviewing the chart, time spent during the visit, and time spent after the visit and documentation. Patient was informed and verbally consented to the use of an ambient scribe for clinic note documentation during this visit. Orders: Orders Hemoglobin A1c Today E11.65 - Type 2 diabetes mellitus with hyperglycemia, Z13.1 - Encounter for screening for diabetes mellitus Comprehensive Met. Panel Today Z00.00 - Encounter for general adult medical examination without abnormal findings, Z13.1 - Encounter for screening for diabetes mellitus Lipid Panel Today E78.00 - Pure hypercholesterolemia, unspecified, I10 - Essential (primary) hypertension Vitamin B12 and Folate Today I10 - Essential (primary) hypertension, Z13.21 - Encounter for screening for nutritional disorder TSH reflex Free T4 Today Z00.00 - Encounter for general adult medical examination without abnormal findings, Z13.29 - Encounter for screening for other suspected endocrine disorder Free T4 (Free Thyroxine) Today Z00.00 - Encounter for general adult medical examination without abnormal findings, Z13.29 - Encounter for screening for other suspected endocrine disorder Complete Blood Count Auto Diff Today I10 - Essential (primary) hypertension, Z00.00 - Encounter for general adult medical examination without abnormal findings Vitamin D 25-OH Total Today I10 - Essential (primary) hypertension, Z00.00 - Encounter for general adult medical examination without abnormal findings Medications: New hydrochlorothiazide 25 mg PO DAILY 90 tabs 0RF I10 - Essential (primary) hypertension famotidine 20 mg PO DAILY 90 tabs 0RF I10 - Essential (primary) hypertension Discontinued hydrochlorothiazide Discontinued Reason: Patient no longer taking 50 mg PO QAM 90 tabs 2RF
[2024-11-12 10:17] VITALS: BP 126/54; PULSE 70; TEMP 36.8; O2SAT 97; BMI 24.9
--- OUTSIDE RECORDS SUMMARY | 2024-11-12 11:06 | XMS_ITS | Clinical Summary ---
Author Organization [employer] Address [address] [place] [address] Care Team Providers Care Hand Laminator Name Role Phone Unavailable Primary Care Provider Unavailabl e Social History Tobacco Use Types Packs/Day Years Used Date Smoking Tobacco: Never Assessed Comments Unknown Sex and Gender Information Value Date Recorded Sex Assigned at Female 02/14/2022 10:18 AM EDT Legal Sex Female 10:18 AM EDT Gender Identity Female 02/14/2022 10:18 AM EDT Sexual Orientation Straight 02/14/2022 10 :18 AM EDT Plan of Treatment Health Maintenance Due Date Last Done Comments CT Colonography 1950 Colonoscopy 1950 Colorectal Cancer Screening 1950 Depression Screening 1950 FIT DNA/Cologuard 1950 FIT 1950 FOBT 1950 SDOH Screening 1950 Sigmoidoscopy 1950 Alcohol/Substance Use Screening 1962 Tobacco Screening 1962 Hepatitis C Screening 02/23/1968 DTaP/Tdap/Td Vaccines (1 - Tdap) 1969 Mammogram 1990 Pneumococcal Vaccine: 50+ Years (1 of 1 - PCV) 02/23/2000 Zoster Vaccines (1 of 2) 02/23/2000 COVID-19 Vaccine (3 - 2023-2 5 season) 2023 08/12/2020, 07/22/2020 Influenza Vaccine (#1) 2024 RSV Patients and Patients Aged 60 years or older (1 - 1-dose 75+ series) 2025 HIB Vaccines Aged Out No longer eligi ble based on patient's age to complete this topic HPV Vaccines Aged Out No longer eligi ble based on patient's age to complete this topic Hepatitis A Vaccines Aged Out No long er eligible based on patient's age to complete this topic Hepatitis B Vaccines Aged Out No long er eligible based on patient's age to complete this topic IPV Vaccines Aged Out No longer eligi ble based on patient's age to complete this topic Meningococcal B Vaccine Aged Out No l onger eligible based on patient's age to complete this topic Meningococcal Vaccine Aged Out No hardy [place] eligible based on patient's age to complete this topic RSV under 20 months Aged Out No longe r eligible based on patient's age to complete this topic Rotavirus Vaccines Aged Out No longer eligible based on patient's age to complete this topic Insurance MEDICARE [facility]
--- OUTSIDE RECORDS SUMMARY | 2024-11-12 11:06 | XMS_ITS | Clinical Summary ---
Author Organization [facility] [employer] [facility] ity Address [address] [place] [address] Care Team Providers Care Health Data Analyst Name Role Phone Unavailable Primary Care Provider Unavailabl e Social History Tobacco Use Types Packs/Day Years Used Date Smoking Tobacco: Never Assessed Comments Unknown Sex and Gender Information Value Date Recorded Sex Assigned at Not on file Legal Sex Female 1:27 AM EST Gender Identity Not on file Sexual Orientation Not on file Plan of Treatment Health Maintenance Due Date Last Done Comments DTaP,Tdap,and Td Vaccines (1 - Tdap) 1969 Pneumococcal Vaccine: 50+ Years (1 of 1 - PCV) 02/23/2000 Zoster Vaccines (1 of 2) 02/23/2000 Colorectal Cancer Screening: Colonoscopy 03/20/2022 Falls Risk Assessment 03/20/2022 Hepatitis C Screening 03/20/2022 Social Influencers of Health Screening 03/20/2022 COVID-19 Vaccine ( - season) 2023 Depression Screening 04/17/2024 Influenza Vaccine (#1) 2024 RSV Immunization Adult Patients (1 - 1-dose 75+ series) 2025 Breast Cancer Screening 04/20/2025 04/20/19 24, 04/13/2022, 03/18/2021, Additional history exists Osteoporosis Screening (Bone Density Screening) 03/18/2031 03/18/2021 HIB Vaccines Aged Out No longer eligi [...] on patient's age to complete this topic MMR Vaccines Aged Out No longer eligi ble based on patient's age to complete this topic Meningococcal ACWY Vaccine Aged Out N o longer eligible based on patient's age to complete this topic Meningococcal B Vaccine Aged Out No l onger eligible based on patient's age to complete this topic RSV Immunization Patients Under 20 months Aged Out No longer eligible based on patient's age to complete this topic Varicella Vaccines Aged Out No longer eligible based on patient's age to complete this topic Procedures Procedure Name Priority Date/Time Associated Diagnosis Comments [facility] SCREENING DIGITAL Routine 04/20/2023 1:07 PM EST Encounter for screening mammogram for malignant neoplasm of breast [facility] DEXA AXIAL SKELETON Routine 03/18/2021 11:09 AM EST Encounter for screening for osteoporosis from Last 3 Months or Most Recently Relevant to Health Maintenance Results * [facility] SCREENING DIGITAL (04/20/2023 1:07 PM EST) Anatomical Region Laterality Modality Mammography 04/19/2023 8:47 AM EST Narrative 04/20/2023 1:07 PM EST [facility] Diagnostic Imaging Department [address] [place] [address] Patient: DEJA ROWLAND D.O.B./Age/Sex: 1950 - 73 - F Unit#: [id number] [facility]Ordering [facility] Ordering Physician: DARNELL NEGRON MD [facility] Screening Digital - 04/19/23903 Report Status:Signed EXAM: [facility] Screening Digital EXAM DATE AND TIME: 04/19/2023 9:05 AM HISTORY: Screening. Left breast biopsy in 1990, pathology benign. COMPARISON: 04/13/22, 03/18/21, 02/07/20 and earlier exams dating back to 2017. TECHNIQUE: Bilateral digital breast tomosynthesis was performed in the CC and MLO projections. Computer aided detection with Space-Time Insight 3D 3.1 was employed. TISSUE DENSITY: b. There are scattered areas of fibroglandular density. FINDINGS: No suspicious masses, grouped microcalcifications, or areas of architectural distortion are seen. An 8 mm circumscribed nodule in the upper outer left breast, middle depth, has decreased in size over the years and developed coarse, eccentric calcifications, most likely a fibroadenoma. A similar nodule in the medial breast, with a few coarse calcifications is unchanged. Benign secretory calcifications are noted in the right breast. The skin and vascularity are unremarkable. IMPRESSION: Stable mammographic appearance of the breasts. No evidence of malignancy is seen. A negative mammogram in the presence of a clinically suspicious palpable abnormality does not preclude the possibility of malignancy or alter the indications for biopsy. BI-RADS: Category 2: Benign RECOMMENDATION(S): 1: Routine screening mammogram BILATERAL in 1 year. Dictating Physician: KALIE ZAVALA MD Electronically Signed by: KALIE ZAVALA MD Dic Date/Time: 04/20/23 1306 Sign date/Time: 04/20/23 1307 Procedure Note Kalie Zavala MD - 12/04/2023 [facility] Diagnostic Imaging Department [address] [place] [address] Patient: DEJA ROWLAND Catarino Barrett/Age/Sex: 1950 - 73 - F Unit#: [id number] Location/Status: [facility] CLI Mnemonic/Ordering Site: [facility] Ordering Physician: DARNELL NEGRON MD [facility] Screening Digital - 04/19/23 - 0904 Report Status:Signed EXAM: [facility] Screening Digital EXAM DATE AND TIME: 04/19/2023 9:05 AM HISTORY: Screening. Left breast biopsy in 1990, pathology benign. COMPARISON: 04/13/22, 03/18/21, 02/07/20 and earlier exams dating back [id number]. TECHNIQUE: Bilateral digital breast tomosynthesis was performed in the CCand MLO projections. Computer aided detection with Space-Time Insight 3D 3.1was employed. TISSUE DENSITY: b. There are scattered areas of fibroglandular density. FINDINGS: No suspicious masses, grouped microcalcifications, or areas ofarchitectural distortion are seen. An 8 mm circumscribed nodule in the upper outerleft breast, middle depth, has decreased in size over the years and developedcoarse, eccentric calcifications, most likely a fibroadenoma. A similar nodule inthe medial breast, with a few coarse calcifications is unchanged. Benignsecretory calcifications are noted in the right breast. The skin and vascularity are unremarkable. IMPRESSION: Stable mammographic appearance of the breasts. No evidence of malignancyis seen. A negative mammogram in the presence of a clinically suspicious palpable abnormality does not preclude the possibility of malignancy or alter the indications for biopsy. BI-RADS: Category 2: Benign RECOMMENDATION(S): 1: Routine screening mammogram BILATERAL in 1 year. Dictating Physician: KALIE ZAVALA MD Electronically Signed by: KALIE ZAVALA MD Dic Date/Time: 04/20/23 1306 Sign date/Time: 04/20/23 1307 us Darnell Negron MD IMG BI PROCEDURES Final Resu lt * [facility] DEXA AXIAL SKELETON (03/18/2021 11:09 AM EST) Anatomical Region Laterality Modality Mammography 03/18/2021 10:2 2 AM EST Narrative 03/18/2021 11:09 AM [facility] Diagnostic Imaging Department [address] [place] [id number] Patient: SLIMEDEJA/Age/Sex: 1950 - 71 - F Unit#: [id number] [facility] Ordering Physician: DARNELL NEGRON MD [facility] Dexa Axial Skeleton - 03/18/211105 HISTORY: The patient is a 71-year-old postmenopausal female with clinical concern for metabolic bone disease. FINDINGS: Dual energy x-ray absorptiometry of the lumbar spine and femurs is performed. The mean bone mineral density at L1-L4 (with the exclusion of L3) is 1.205 gm/cm2 which is 103% of that of young normals and 123% of that of age matched controls. This yields a T-score of 0.3 and a Z-score of 1.9 and there is therefore no evidence of osteoporosis or osteopenia here. The mean bone mineral density of the femurs bilaterally is 0.763 gm/cm2 which is 76% of that of young normals and 93% of that of age matched controls. This yields a T-score of -1.9 and a Z-score of -0.5 which is diagnostic of osteopenia. The T-score of the right femoral neck is -2.0 and that of the left femoral neck is -2.4 which is diagnostic of osteopenia. IMPRESSION: 1. Osteopenia. 2. FRAX analysis yields a 10-year probability of major osteoporotic fracture of 18.7% and a 10-year probability of hip fracture of 3.7%. Code 96764 Dictating Physician: GUS MATOS MD Electronically Signed by: GUS MATOS MD Dic Date/Time: 03/18/211106 Sign date/Time: 03/18/211108 Procedure Note Gus Matos MD - 04/06/2022 [facility] Diagnostic Imaging Department [address] [place] [address] Patient: DEJA ROWLAND D.O.B./Age/Sex: 1950 - 71 - F Unit#: [id number] Location/Status: [facility] CLI Mnemonic/Ordering Site: [facility] Ordering Physician: DARNELL NEGRON MD [facility] Dexa Axial Skeleton - 03/18/211105 HISTORY: The patient is a 71-year-old postmenopausal female withclinical concern for metabolic bone disease. FINDINGS: Dual energy x-ray absorptiometry of the lumbar spine and femursis performed. The mean bone mineral density at L1-L4 (with the exclusion ofL3) is 1.205 gm/cm2 which is 103% of that of young normals and 123% of that ofage matched controls. This yields a T-score of 0.3 and a Z-score of 1.9 andthere is therefore no evidence of osteoporosis or osteopenia here. The mean bone mineral density of the femurs bilaterally is 0.763 gm/ej8tdqui is 76% of that of young normals and 93% of that of age matched controls.This yields a T-score of -1.9 and a Z-score of -0.5 which is diagnostic of osteopenia. The T-score of the right femoral neck is -2.0 and that of theleft femoral neck is -2.4 which is diagnostic of osteopenia. IMPRESSION: 1. Osteopenia. 2. FRAX analysis yields a 10-year probability of major osteoporoticfracture of 18.7% and a 10-year probability of hip fracture of 3.7%. Code 64890 Dictating Physician: GUS MATOS MD Electronically Signed by: GUS MATOS MD Dic Date/Time: 03/18/21 1107 Sign date/Time: 03/18/21 110 us Darnell Negron MD IM BI PROCEDURES Final Resu lt from Last 3 Months or Most Recently Relevant to Health Maintenance
--- OUTSIDE RECORDS SUMMARY | 2024-11-12 11:06 | XMS_ITS | Clinical Summary ---
Author Organization [facility] Address [address] [place] [phone] Phone Care Team Providers Care Director Data Name Role Phone Pcp, Unknown Primary Care Provider Unavailabl e Social History Tobacco Use Types Packs/Day Years Used Date Smoking Tobacco: Never Assessed Education Answer Date Recorded Are you interested in more education? Not on marcella e 05/28/2024 Are you concerned about learning? Not on file 05/28/2024 No 05/28/2024 No 05/28/2024 Digital Access Answer Date Recorded No 05/28/2024 No 05/28/2024 Reliable internet access at home? Not on file 05/28/2024 Device with a working camera? Not on file Comments Unknown Sex and Gender Information Value Date Recorded Sex Assigned at Not on file Legal Sex Female 9:18 AM EST Gender Identity Not on file Sexual Orientation Not on file Plan of Treatment Upcoming Encounters Date Type Department Care Team (Late st Contact Info) Description 06/16/2025 2:30 PM EST Office Visit [facility] [address] [place] [address] Junaid Johnson MD [address] [place] [address] Health Maintenance Due Date Last Done Comments Adult Td,Tdap Booster 1950 LIPID PANEL 1950 DEPRESSION SCREENING 1962 SMOKING Hx and SMOKELESS TOB ACCO SCREENING 1963 HEPATITIS C SCREENING 02/23/1968 MAMMOGRAM 1990 COLOGUARD 1995 COLONOSCOPY 1995 COLORECTAL CANCER SCREENING 1995 FIT TEST 1995 FOBT 1995 SIGMOIDOSCOPY 1995 VIRTUAL COLONOSCOPY 1995 PNEUMOCOCCAL VACCINES (50+ y ears) (1 of 1 - PCV) 02/23/2000 ZOSTER VACCINES (1 of 2) 02/23/2000 OSTEOPOROSIS SCREENING INITI AL (ONE-TIME) 2015 COVID-19 VACCINE ( - 2023-2 5 season) 2023 RSV VACCINE (1 - 1-dose 75+ series) 2025 HEPATITIS A VACCINES Aged Out No long er eligible based on patient's age to complete this topic HIB VACCINES Aged Out No longer eligi ble based on patient's age to complete this topic MENINGOCOCCAL VACCINES (ACWY) Aged Out No longer eligible based on patient's age to complete this topic MENINGOCOCCAL VACCINES (B) Aged Out N o longer eligible based on patient's age to complete this topic Medical Devices Not on file Insurance [employer] MEDICARE PART A & B [place] & B [facility] MEDICARE PART A & B Care Teams Director Data Relationship Specialty Start Date End Date Pcp, Unknown PCP - General 05/28/24 Additional Source Comments The information contained in this document represents components of the legal health record. It is not the complete legal health record.[facility]
== END 2024-11-12 10:56 | disposition home or self-care (01) ==
LOC: HO.HMCH 10:14
DX: Z00.00 Encounter for general adult medical examination without abnormal findings (principal); I10 Essential (primary) hypertension; E78.2 Mixed hyperlipidemia; R10.9 Unspecified abdominal pain; R01.1 Cardiac murmur, unspecified

== ENCOUNTER → 2024-11-12 10:14 | Outpatient (BNVA) | payer MEDICARE, MEDICAID, SELFPAY | DX: Z00.00 Encounter for general adult medical examination without abnormal findings (principal); I10 Essential (primary) hypertension; E78.2 Mixed hyperlipidemia; R10.9 Unspecified abdominal pain; R01.1 Cardiac murmur, unspecified | CPT/HCPCS: 96127; 99397 ==